=== PATIENT | female | born 1985 | race Hispanic/Latino ===

== ENCOUNTER 2018-09-12 01:32 | Inpatient (IN) | payer MEDICAID, OTHER, SELFPAY ==
[2018-09-12 01:55] VITALS: BMI 30.9
--- NOTE | 2018-09-12 02:08 | PDOC.FPROB ---
FMR OB H&P: HPI - History of Present Illness Chief Complaint: Contractions History of Present Illness: This is a at 40.2 by LMP, c/w 17.4 wk us who presents to L&D with a cc of contractions. She reports the contractions started last Tuesday but overnight they become much more forceful and consistent. She report movement and minimal vaginal bleeding. She denies LOF, chest pain, palpitations, nausea, vomiting, or diarrhea. 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 - Surgical History Sx History: none - Social History Social History: Denies ADRIAN - Family History Family History: Noncontributory FMR OB H&P: Medications - Current Home Medications: Medication Instructions Recorded Confirmed Type Pnv No.95/Ferrous Fum/Folic AC 1 tablet PO DAILY 02/06/13 09/12/18 History [ Tablet] Acetaminophen W/ Codeine 2 tab PO Q4H PRN #0 tab 07/25/14 09/12/18 Rx [Acetaminophen/Codeine #3] Allergies/Adverse Reactions: Allergies Allergy/AdvReac Type Severity Reaction Status Date / Time No Known Allergies Allergy Verified 09/12/18 01:51 FMR OB H&P: ROS - Review of Systems General: denies: fever/chills, weight/appetite/sleep changes, fatigue, recent trauma Eyes: denies: eye pain, vision changes ENT: denies: nasal congestion, rhinorrhea, trouble with swallowing Cardiovascular: denies: chest pain, palpitation, edema Respiratory: denies: cough, congestion, shortness of breath Gastrointestinal: reports: indigestion. denies: abdominal pain, nausea, vomiting, diarrhea Genitourinary (Female): reports: vaginal pain, vaginal bleeding (minimal upon start of contractions). denies: vaginal discharge Musculoskeletal: reports: pain (lower extremity pain towards end of ) Neurologic: denies: numbness, syncope, seizures Integumentary: denies: itching, rash Endocrine: denies: cold intolerance, heat intolerance Hematologic/Lymphatic: denies: prolonged or excessive bleeding Psychological: denies: depression, anxiety FMR OB H&P: Vital Signs - Maternal Vital signs: BP 122/72, HR 90, SPo2 98% - Heart Tones Baseline: 140 Variability: moderate Acceleration: present Deceleration: absent Category: category 1 [place] contractions every: 2-4 minutes FMR OB H&P: Physical Exam - Physical Exam General: NAD, awake, alert and oriented HEENT: normocephalic and atraumatic, EOMI, MMM, grossly normal vision, grossly normal hearing, normal nasal mucosa Neck: supple, trachea midline Chest: non-tender to palpation, no lesions Heart: RRR, normal S1/S2, pulses present General: CTAB, no respiratory distress, no retractions Abdomen: soft, gravid Musculoskeletal: pulses present, FROM in all four extremities Neurological: cranial nerves II through XII intact Lymphatic: no unusual bruising or bleeding, no purpura Psychiatric: intact recent and remote memory, good judgement and insight - Pelvic Exam SVE: /-2 Membranes: Bulging bag FMR OB H&P: A/P - Problem List (1) Term Current Visit: Yes Status: Acute Code(s): Z34.90 - ENCNTR FOR SUPRVSN OF NORMAL , UNSP, UNSP TRIMESTER Disposition: This is a 33 yo at 40.2 wks by LMP c/w 17.4 wk US sIUP, Term -Admit to L&D -Routine antepartum labs -LR 125ml/hr -Pt request an epidural at this time -Initial check shows /-2 -Andrew every 2-4 minutes -FHTs baseline at 140s -Expectant management Discussion: Date/Time: 09/12/18206 This H&P was discussed with Dr. Webb who agrees with the above documentation and plan. Signature: Gilbert Marti DO
[2018-09-12] MEDS ORDERED: Ondansetron PF 4 MG/2 ML Vial IVP PRN ×2 (02:13→03:05)
[2018-09-12] MEDS ORDERED: hydrALAZINE 20 MG/ML VIAL SLOW IVP PRN (02:13)
[2018-09-12] MEDS ORDERED: Promethazine HCl 25 MG/ML VIAL IM PRN ×2 (02:13→03:05)
[2018-09-12] MEDS ORDERED: Lidocaine 1% (PF) 30 ML VIAL SC PRN (02:13)
[2018-09-12] MEDS ORDERED: Acetaminophen 500 MG TAB PO PRN (02:13)
[2018-09-12] MEDS ORDERED: Fentanyl 4 mcg/Bup 0.1% Cadd 0 ML ONE (02:40)
[2018-09-12] MEDS ORDERED: Fentanyl 4 mcg/Bup 0.1% Cadd 100 ML ONE ×2 (02:41→09:30)
[2018-09-12 02:42] LABS: Hemoglobin 12.3 g/dL (12.0-16.0); Mean Corpuscular HGB CONC 33.7 g/dL (32.0-36.0); Mean Corpuscular Hemoglobin 28.4 pg (27.0-31.0); Mean Corpuscular Volume 84.3 fL (78.0-98.0); Mean Platelet Volume 9.6 fL (7.4-10.4); Platelet Count 209 thou/uL (130-400); RBC Distribution Width 14.1 % (11.5-14.5); Red Blood Cell (RBC) Count 4.32 mill/uL (4.20-5.40); White Blood Cell (WBC) Count 14.4 thou/uL (4.8-10.8)
[2018-09-12] MEDS ORDERED: Lidocaine 1% PF 5 ML VIAL ONE (02:53)
[2018-09-12] MEDS ORDERED: Lidocaine 1.5%/Epinephrine 1:200,000 5 ML AMPUL IJ ONE (02:53)
[2018-09-12] MEDS ORDERED: diphenhydrAMINE 50 MG/ML VIAL IVP PRN (03:05)
[2018-09-12] MEDS: Lactated Ringer's 1,000 ML IV SCH ×2 (03:05→05:51)
[2018-09-12] MEDS ORDERED: Lactated Ringer's 500 ML IV PRN (03:05)
[2018-09-12] MEDS ORDERED: ePHEDrine/0.9% NaCl/PF SYRINGE 50 mg/10 ml SLOW IVP PRN (03:05)
[2018-09-12] MEDS ORDERED: Naloxone HCl 0.4 mg/ml Vial IVP PRN ×2 (03:05)
[2018-09-12] MEDS ORDERED: Fentanyl 4 mcg/Bupivacaine 0.1% Cassette 100 ML EPIDURAL SCH (03:15)
[2018-09-12] MEDS ORDERED: Communication Order-Pharmacy FS SCH (03:15)
[2018-09-12 03:17] LABS: HBSAg Index 0.24 S/CO (0-0.99); Hep B Surf Ag Non-Reactive S/CO (NonReactive)
[2018-09-12] MEDS ORDERED: Calcium Carbonate 500 MG ChewTAB PO PRN (03:30)
[2018-09-12 04:33] LABS: Syphilis Antibody Nonreactive (Nonreactive); Syphilis Antibody Index 0.04 S/CO (<1.00 Non-Reactive)
--- NOTE | 2018-09-12 06:03 | PDOC.LDPN ---
Labor & Delivery Progress Note - Subjective Subjective: comfortable - Objective Vital signs reviewed and normal: yes General: NAD, resting Uterine fundus: non tender SVE: 6:00 AM by Kaia/Capri Dilation: 8 Effacement: 100% Station: -1 FHT: category 1, variability present [place] contractions every: q2-3 min - Assessment (1) Term Code(s): Z34.90 - ENCNTR FOR SUPRVSN OF NORMAL , UNSP, UNSP TRIMESTER Current Visit: Yes Status: Acute Plan: continue plan of care -: Cervical exam 8/100/-1, ballotable with bulging bag. Patient making change without any augmentation. Will recheck in 2 hours. Consider AROM at that time if head well engaged/no cord palpable.
--- NOTE | 2018-09-12 09:25 | PDOC.LDPN ---
Labor & Delivery Progress Note - Subjective Subjective: comfortable - Objective Vital signs reviewed and normal: yes General: NAD, breathing through contractions Uterine fundus: non tender Dilation: 9 Effacement: 100% Station: -1 FHT: category 1 (baseline 140, accels), variability present [place] contractions every: 2 mins AROM: clear fluid - Assessment (1) Term Code(s): Z34.90 - ENCNTR FOR SUPRVSN OF NORMAL , UNSP, UNSP TRIMESTER Current Visit: Yes Status: Acute Plan: continue plan of care -: Cervical exam /-1, engaged with bulging bag. AROM clear fluid, no cord palpated epidural providing adequate pain control expectant mgmt
[2018-09-12] MEDS: NS / Oxytocin 40 units/1000ml 1,000 ML IV PRN ×2 (10:05→12:04)
--- NOTE | 2018-09-12 10:15 | PDOC.EVN ---
Event Note - Event Note Event Note: Faculty Delivery Note 09/02/18 Time of : 0956 [place] for the Residents parts professional Preprocedure DX: Multip in active labor Postprocedure DX: same Procedure: controlled Delivery personnel: Kalli; Faculty [place] Anesthesia: AMBER Findings: Vigours male ; spont cry; intact perineum, 3VC, Body cord X1, delayed cord clamp x 30 sec Agars and wt pending EBL: per resident note Compl: none Counts correct Disp: routine recovery I was present and supervised the entire delivery process including third stage of labor management. No complications noted.
--- NOTE | 2018-09-12 10:36 | PDOC.OPDEL ---
OB Operative/Delivery Note Delivery Dr/Surgeon: Mikhail/Zehra/Fortino Pre-Delivery Diagnosis: active labor Procedure/Post Delivery Dx: spontaneous vaginal delivery Weeks gestation: 40 (.2) Anesthesia: spinal - Findings A Sex: male - 1 min: 8 - 5 min: 9 - Additional Findings/Plan Placenta delivered: spontaneous Repaired Obstetrical Laceration: none Estimated blood loss: 325 Compilations/Other Findings: This is 33 yo F @ 40.2 wks who delivered a viable M at 0956. Following an uneventful antepartum course, a vigorous male was delivered over an intact perineum in the occipitoanterior position. Anterior Shoulder and then remainder of the body delivered. No nuchal cord. The head was held down and mouth and nares were bulb suctioned. Cord clamped after delayed cord clamping and cut and cord blood collected. Placenta delivered intact in the Harvey presentation with a 3 vessel cord noted. Fundal massage was performed and the fundus was firm. The cervix and vagina were inspected and found to be free of lacerations. Infant went to nursery in good condition for routine care. Apgars were 8/9 at 1 & 5 minutes, respectively. Patient tolerated delivery well and went to after routine recovery/care. Post delivery plan: routine recovery
[2018-09-12] MEDS: Acetaminophen 325 MG TAB PO PRN ×2 (17:07→22:01)
[2018-09-12] MEDS ORDERED: Methylergonovine 0.2 MG TAB PO PRN (18:36)
[2018-09-12] MEDS ORDERED: Bisacodyl 10 MG SUPP PR PRN (18:36)
[2018-09-12] MEDS ORDERED: NS / Oxytocin 40 units/1000ml 1,000 ML IV SCH (18:36)
[2018-09-12] MEDS ORDERED: diphenhydrAMINE 25 MG CAP PO PRN (18:36)
[2018-09-12] MEDS ORDERED: Misoprostol 200 MCG TAB VAG PRN (18:36)
[2018-09-12] MEDS ORDERED: Milk Of Magnesia 30 ML UDCUP PO PRN (18:36)
[2018-09-12] MEDS ORDERED: Ibuprofen 800 MG TAB PO SCH (18:45)
[2018-09-12] MEDS ORDERED: Adacel (T-DAP) 0.5 ML SYRINGE IM ONE (21:00)
[2018-09-13] MEDS ORDERED: Ibuprofen 800 MG TAB PO SCH ×2 (04:00→06:00)
--- NOTE | 2018-09-13 06:23 | PDOC.PP ---
Post Progress Note Post Day #: 1 Subjective: Doing well, has other children at home and desires dsch to home if possible PO intake tolerated: yes Flatus: yes Ambulation: yes Vital Signs (12 hours) Temp Pulse Resp BP Pulse Ox 09/13/18 04:15 98.1 F 77 18 99/55 L 09/13/18 00:25 98.5 F 80 18 97/55 L 09/12/18 20:40 98.5 F 73 18 114/56 L 99 Weight Weight 175 lb - Physical Examination General: NAD Cardiovascular: no m/r/g Respiratory: clear to auscultation bilaterally Abdominal: + bowel sounds, lochia, no distention, appropriately TTP Extremities: negative homans (B) Neurological: no gross focal deficits Psychiatric: A&Ox3, normal affect Result Diagrams: 09/12/18 02:31 Additional Labs: Post Labs Blood Type O POSITIVE 09/12/18 02:31 Hep Bs Antigen Non-Reactive S/CO (NonReactive) 09/12/18 02:31 (1) Term Code(s): Z34.90 - ENCNTR FOR SUPRVSN OF NORMAL , UNSP, UNSP TRIMESTER Status: Acute (2) Vaginal delivery Code(s): O80 - ENCOUNTER FOR FULL-TERM UNCOMPLICATED DELIVERY Status: Acute - Assessment/Plan A/P: Doing well, multip, PP. Anticipate DS[facility] home today at noon. F/U in 2 weeks or so.
[2018-09-13 08:13] VITALS: BP 115/62; TEMP 97.9
[2018-09-13] MEDS: Acetaminophen 325 MG TAB PO PRN (08:56)
== END 2018-09-13 12:50 | disposition home or self-care (01) | DRG 807 ==
LOC: L&D/OP 01:32 → L&D 03:47 → 3SW 12:54
PROVIDERS: ADMIT Obstetrics & Gynecology; ATTEND Obstetrics & Gynecology
PROC: 10E0XZZ Delivery of Products of Conception, External Approach (ICD-10-PCS; principal; 2018-09-12)
PROC: 10907ZC Drainage of Amniotic Fluid, Therapeutic from Products of Conception, Via Natural or Artificial Opening (ICD-10-PCS; 2018-09-12)
DX: O48.0 Post-term pregnancy (principal); Z37.0 Single live birth; Z3A.40 40 weeks gestation of pregnancy
CPT/HCPCS: 36415; 51702; 85027; 86780; 86850; 86900; 86901; 87340; 90715; 99285; J2001; J2405; J3490